=== PATIENT | female | born 1990 | race Caucasian/White ===

== ENCOUNTER → 2018-03-19 | Outpatient (CLI) | payer OTHER ==
[~2018-03-19] MED LIST: ALBU8.5H8 INH; ALPR-475 PO; ALPR0.254 PO; ASCO10004 PO; BACL-19 PO; BIOT5CAP3 PO; BUPR-86 PO; BUPR200T2 PO; BUSP15TA PO; CETI10TA24 PO; CYAN25009 PO; GABA-826 PO; LABE100T6 PO; LACT1TAB3 PO; LAMO100T5 PO; LAMO25TA6 PO; MELA1TAB15 PO; MORP15TA3 PO; MULT-516 PO; NORG1TAB75 PO; OXYC10TA6 PO; PANT40TA5 PO; PYRI100T2 PO; UVA URSI PO
== END | disposition home or self-care (01) ==
LOC: STAR 14:33
PROVIDERS: ATTEND Internal Medicine Gastroenterology
DX: Z02.9 Encounter for administrative examinations, unspecified (principal)

== ENCOUNTER 2018-03-24 09:22 | Day surgery (SDC) | payer OTHER ==
[~2018-03-24] VITALS: Ht 165.1 cm; Wt 117.0 kg
[~2018-03-24 09:22] MED LIST changes: -BUPR200T2 PO; -CETI10TA24 PO
[2018-03-24 09:47] VITALS: BP 132/86
[2018-03-24] MEDS ORDERED: BUPR200T2 PO (09:51)
[2018-03-24] MEDS ORDERED: BUPR-86 PO (09:51)
[2018-03-24] MEDS ORDERED: CETI10TA24 PO (09:52)
[2018-03-24] MEDS ORDERED: LIDOCAINE-MPF 1%, 2ML INFIL ONE (10:00)
[2018-03-24 10:03] LABS: HCG UR SG 1.029 (1.003-1.030)
[2018-03-24] MEDS ORDERED: ACETAMINOPHEN 325 MG TABLET PO PRN (11:00)
[2018-03-24] MEDS ORDERED: LACTATED RINGERS 1,000 ML IV SCH (11:00)
[2018-03-24] MEDS ORDERED: ONDANSETRON 2MG/ML, 2ML IV PRN (11:00)
[2018-03-24] MEDS ORDERED: FENTANYL PF 100 MCG/2ML IV PRN (11:00)
[2018-03-24] MEDS ORDERED: PROPOFOL 10 MG/ML, 20ML ONE (12:08)
[2018-03-24] MEDS ORDERED: MIDAZOLAM 1 MG/ML, 2ML ONE (12:13)
== END 2018-03-24 13:45 | disposition home or self-care (01) ==
LOC: OUT 09:22
PROVIDERS: ATTEND Internal Medicine Gastroenterology
DX: K29.50 Unspecified chronic gastritis without bleeding (principal); K21.0 Gastro-esophageal reflux disease with esophagitis; K64.9 Unspecified hemorrhoids; F31.9 Bipolar disorder, unspecified; J45.909 Unspecified asthma, uncomplicated; E78.00 Pure hypercholesterolemia, unspecified; I10 Essential (primary) hypertension; G47.33 Obstructive sleep apnea (adult) (pediatric); Z88.8 Allergy status to other drugs, medicaments and biological substances; Z88.6 Allergy status to analgesic agent; Z88.1 Allergy status to other antibiotic agents; Z91.030 Bee allergy status; Z98.890 Other specified postprocedural states; Z72.89 Other problems related to lifestyle; Z87.891 Personal history of nicotine dependence; Z79.899 Other long term (current) drug therapy
CPT/HCPCS: 43239; 81025; 88305; J2250; J2704; J7120

== ENCOUNTER → 2020-12-05 | Outpatient (CLI) | payer OTHER ==
[~2020-12-05] MED LIST changes: -ALPR-475 PO; +ALPR0.5T7 PO; +ASCO100018 PO; -ASCO10004 PO; +BUPR200T2 PO; +CETI10TA76 PO; +MORP-29 PO; -MORP15TA3 PO; -NORG1TAB75 PO; +NORG1TAB83 PO; -PANT40TA5 PO; +PANT40TA6 PO; -PYRI100T2 PO; +PYRI100T9 PO
== END | disposition home or self-care (01) ==
LOC: CFH 12:38
PROVIDERS: ATTEND Psychiatry & Neurology Neurology
DX: G43.839 Menstrual migraine, intractable, without status migrainosus (principal)
CPT/HCPCS: 70551